=== PATIENT | male | born 1995 | race Caucasian/White ===

== ENCOUNTER 2018-02-03 03:12 | Emergency (ER) | payer OTHER ==
[~2018-02-03] VITALS: Ht 185.4 cm; Wt 127.0 kg
[~2018-02-03 03:12] MED LIST: ANAPROX DS550 MG PO; CEPHALEXIN500 MG PO; CYCLOBENZAPRINE10 MG PO; TRAMADOL HCL50 MG PO
[2018-02-03] MEDS ORDERED: NAPROXEN500 MG PO (03:50)
== END 2018-02-03 04:07 | disposition home or self-care (01) ==
LOC: ED 03:12
DX: S83.92XA Sprain of unspecified site of left knee, initial encounter (principal); Z88.0 Allergy status to penicillin; W01.0XXA Fall on same level from slipping, tripping and stumbling without subsequent striking against object, initial encounter
CPT/HCPCS: 73560; 99283

== ENCOUNTER 2018-05-02 19:46 | Emergency (ER) | payer SELFPAY ==
[~2018-05-02] VITALS: Ht 185.4 cm; Wt 140.6 kg
[~2018-05-02 19:46] MED LIST changes: +NAPROXEN500 MG PO
[2018-05-02] MEDS ORDERED: CRUTCH1 EACH (23:01)
== END 2018-05-02 23:30 | disposition home or self-care (01) ==
LOC: ED 19:46
DX: S93.402A Sprain of unspecified ligament of left ankle, initial encounter (principal); Z88.0 Allergy status to penicillin; X50.9XXA Other and unspecified overexertion or strenuous movements or postures, initial encounter
CPT/HCPCS: 73610; 99283